=== PATIENT | female | born 2000 | race Caucasian/White ===

== ENCOUNTER 2022-06-09 15:27 | Outpatient (CLI) | payer BC, SELFPAY ==
[2022-06-09 20:02] LABS: Basophils Percent Auto 0.5 % (0.2-1.2); Eosinophils Absolute Auto 0.1 K/mm3 (0-0.3); Eosinophils Percent Auto 1.2 % (0-4.4); Hematocrit 41.9 % (37.0-47.0); Hemoglobin 13.9 g/dL (12.0-15.0); Immature Granulocyte Absolute 0.02 K/mm3 (0.00-0.031); Immature Granulocyte Percent A 0.3 % (0-0.5); Lymphocytes Absolute Auto 1.89 K/mm3 (0.9-3.2); Lymphocytes Percent Auto 25.6 % (18.3-44.2); Mean Corpuscular HGB Conc 33.2 g/dl (32-36); Mean Corpuscular Volume 87.5 fl (80-100); Mean Platelet Volume 9.7 fl (7.4-10.4); Monocytes Absolute Auto 0.7 K/mm3 (0.1-0.6); Monocytes Percent Auto 9.3 % (2.6-8.5); Neutrophils Absolute Auto 4.7 K/mm3 (1.3-6.7); Neutrophils Percent Auto 63.1 % (45.5-73.1); Platelet Count Result 288 k/mm3 (150-375); Red Blood Count 4.79 M/mm3 (4.2-5.4); Red Cell Distribution Width 11.7 % (11.5-14.5); White Blood Count 7.4 K/mm3 (4.5-10.0)
[2022-06-09 20:31] LABS: Alanine Aminotransferase 15 U/L (6-35); Albumin Level 5.1 g/dL (3.5-5.1); Alkaline Phosphatase 55 U/L (38-126); Anion Gap 15 mmol/L (8-16); Aspartate Amino Transferase 37 U/L (14-36); Bilirubin,Total 0.6 mg/dL (0.2-1.3); Blood Urea Nitrogen 12 mg/dL (7-17); Calcium 9.7 mg/dL (8.4-10.2); Carbon Dioxide 26 mmol/L (22-30); Chloride 99 mmol/L (98-107); Estimated Glomerular Filt Rate > 60; Glucose 98 mg/dL (65-110); Potassium 3.8 mmol/L (3.4-5.0); Sodium 140 mmol/L (137-145)
== END 2022-06-09 15:28 | disposition home or self-care (01) ==
PROVIDERS: PCP Family Medicine; Visit Provider Family Medicine
DX: Z13.228 Encounter for screening for other metabolic disorders (principal); Z13.29 Encounter for screening for other suspected endocrine disorder; Z13.0 Encounter for screening for diseases of the blood and blood-forming organs and certain disorders involving the immune mechanism
CPT/HCPCS: 36415; 80053; 84443; 85025

== ENCOUNTER 2022-09-04 15:50 | Outpatient (CLI) | payer BC, SELFPAY ==
[2022-09-04 17:53] LABS: Toxigenic C. Diff NEGATIVE (NEGATIVE)
[2022-09-08 22:16] LABS: Fecal Fat, Ql Abnormal (Normal)
[2022-09-13 18:32] LABS: Calprotectin, Stool 141 mcg/g
== END 2022-09-04 15:51 | disposition home or self-care (01) ==
LOC: ANHLAB 15:52
PROVIDERS: PCP Family Medicine; Visit Provider Nurse Practitioner
DX: R63.4 Abnormal weight loss (principal); R63.0 Anorexia; R19.7 Diarrhea, unspecified; R11.0 Nausea; R14.0 Abdominal distension (gaseous)
CPT/HCPCS: 82705; 83993; 87045; 87177; 87209; 87269; 87427; 87493

== ENCOUNTER 2022-09-16 01:23 | Day surgery (SDC) | payer BC, SELFPAY ==
[2022-09-08 14:07] VITALS: BMI 22.2
[2022-09-16 13:15] VITALS: BP 108/71; PULSE 91; RESP 18; TEMP 36.4; O2SAT 100; BMI 21.4
[2022-09-16] MEDS: LACTATED RINGERS 1,000 ML 150 ML IV CONT (13:38)
--- NOTE | 2022-09-16 13:48 | WPDANESEPPF ---
Anes - Initial Pre Proc Eval Procedure: Operation Date: 09/16/22 14:15 Proposed Procedures p Esophagogastroduodenoscopy & Colonoscopy - Ever Seo MD Date/Time: 09/16/22 13:48 Surgeon: Ever Seo MD Pre Op Diagnosis: nausea, weight loss, abdominal distention Patient Data Age: 21 Gender: F Height: 1.6 m Weight: 55 kg Last Vital Signs Temp 97.6 F 09/16/22 13:15 Pulse 91 09/16/22 13:15 Resp 18 09/16/22 13:15 BP 108/71 09/16/22 13:15 Pulse Ox 100 09/16/22 13:15 O2 Del Method Room Air 09/16/22 13:15 Allergies Allergy/AdvReac Type Severity Reaction Status Date / Time No Known Allergies Allergy Verified 09/16/22 13:10 Home Medications Medication Instructions Recorded Confirmed Type omeprazole 20 mg capsule,delayed 40 mg PO DAILY 09/08/22 09/16/22 History release Patient hx anesthesia problems: none Family hx anesthesia problems: none Results Review: All pre-operative results and documents have been reviewed as part of the pre-operative evaluation. 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 Informed Consent: The patient's anesthetic plan and its attendant risks and benefits were discussed with the patient/family/POA. Questions were solicited and answers provided to the satisfaction of the patient/family/POA.
--- NOTE | 2022-09-16 14:07 | WPDHPUPDATE1 ---
History and Physical Update Update Date/Time: 09/16/22 14:07 History and Physical has been reviewed, including an updated exam of the patient. There are NO changes in the patient's condition. Risks, benefits, and alternatives have been discussed and questions answered. Patient agrees to proceed with procedure.
[2022-09-16] MEDS: BENZOCAINE (*SP) 60 ML SPRAY CAN (HURRICAINE) 1 SPRAY MUCOUS MEM (14:13)
--- NOTE | 2022-09-16 14:37 | SUR.OPER ---
EGD START 1415, END 1419 COLONOSCOPY START 1423, END 1435
[2022-09-16 14:39] VITALS: BP 113/70; PULSE 88; RESP 23; O2SAT 100
[2022-09-16 14:49] VITALS: BP 119/81; PULSE 84; RESP 25; O2SAT 100
[2022-09-16 14:59] VITALS: BP 114/80; PULSE 64; RESP 26; O2SAT 96
== END 2022-09-16 15:10 | disposition home or self-care (01) ==
PROVIDERS: PCP Family Medicine; Visit Provider Internal Medicine Gastroenterology
PROC: 0DJ08ZZ Inspection of Upper Intestinal Tract, Via Natural or Artificial Opening Endoscopic (ICD-10-PCS; CPT 43235; principal; 2022-09-16 14:15)
DX: R14.3 Flatulence (principal); R63.4 Abnormal weight loss; R11.0 Nausea; R10.13 Epigastric pain; K58.2 Mixed irritable bowel syndrome
CPT/HCPCS: 45378; 43239; 88305; J2704; J7120